=== PATIENT | female | born 1955 | race Caucasian/White ===

== ENCOUNTER 2025-06-19 11:56 | Emergency (ER) | payer MEDICARE, OTHER, SELFPAY ==
[2025-06-19 12:07] VITALS: BP 144/65; PULSE 70; TEMP 36.8; O2SAT 100; BMI 20.5
--- NOTE | 2025-06-19 12:13 | XR_ITS ---
The [address] [address] Patient Name: HILDA-------- Perlita VERGARA MRN: [id number] date: 1955 Sex: F Assigned Patient Location: ER Current Patient Location: ER Accession/Order Number: [id number] Exam Date: 06/19/2025 12:20 Report Date: 06/19/2025 12:42 At the request of: JOSE NIX MD Procedure: XR ribs RT min 3V w CXR1V PA CHEST WITH RIGHT RIBS: CLINICAL HISTORY: Patient fell today and has right rib pain. COMPARISON: None The chest film shows no infiltrate, effusion or pneumothorax. The cardiac, hilar and mediastinal silhouettes are within normal limits. No vascular congestion is seen. There is slight: Lumbar levoscoliotic curvature. There is a left breast prosthesis and hemostasis clips at the left axilla. AP and both oblique views of the right ribs show osteopenia. No definite acute displaced fractures or bony destruction are seen. XR/XR ribs RT min 3V w CXR1V IMPRESSION: NO ACUTE FINDINGS. Impression dictated by: Robyn Rivers M.D. 06/19/2025 12:42 PM Dictation Location: [place] [address] Electronically authenticated by: [id number] Y Date: 06/19/2025 12:42
--- NOTE | 2025-06-19 12:13 | ED.GENADUL1 ---
HPI HPI - General Adult General Chief complaint: Fall Stated complaint: RT SIDE PAIN - FALL Time Seen by Provider: 06/19/25 12:00 Source: patient Mode of arrival: walk-in Limitations: no limitations History of Present Illness HPI narrative: 70-year-old female presents to the emergency department for pain in the right side of her ribs. She had tripped over some pole equipment. She also sustained an abrasion to her lip but no other injuries. No LOC. No abdominal pain. This happened shortly before coming into the emergency department. Related Data Allergies Allergy/AdvReac Type Severity Reaction Status Date / Time No Known Drug Allergies Allergy Verified 06/19/25 12:07 Review of Systems ROS Narrative A ten point review of systems is negative except as noted above. PFSH PFSH Social History Little interest or pleasure in doing things: not at all Feeling down, depressed, or hopeless: not at all Exam Narrative Exam Narrative: Nurses note and vital signs reviewed and patient is not hypoxic. General: The patient appears in no acute distress. Skin: Warm, dry, no pallor noted. There is no rash noted. Head: Normocephalic, abrasion present at the left corner of her mouth. Eye: Normal conjunctiva, no drainage Ears, Nose, Mouth, and Throat: oral mucosa is moist. Nares patent. Cardiovascular: Regular Rate and Rhythm Respiratory: Patient is in no distress, no accessory muscle use, lungs are clear to auscultation, breath sounds are equal. She has some tenderness in the right posterior lateral rib region. No crepitus bruise or abrasion. Back: C-spine nontender GI: Soft and nontender Musculoskeletal: The patient has no evidence of calf tenderness, no pitting edema, symmetrical pulses noted bilaterally. Superficial abrasion present on her right forearm. Neurological: A&O, normal speech Psychiatric: Cooperative Constitutional Vital Signs, click to edit/add: Last Vital Signs Temp 98.2 F 06/19/25 12:07 Pulse 70 06/19/25 12:07 Resp 16 06/19/25 12:07 BP 144/65 H 06/19/25 12:07 Pulse Ox 100 06/19/25 12:07 O2 Del Method Room Air 06/19/25 12:07 Course Vital Signs Vital signs: Vital Signs Temperature 98.2 F 06/19/25 12:07 Pulse Rate 70 06/19/25 12:07 Respiratory Rate 16 06/19/25 12:07 Blood Pressure 144/65 H 06/19/25 12:07 Pulse Oximetry 100 06/19/25 12:07 Oxygen Delivery Method Room Air 06/19/25 12:07 Temperature 98.2 F 06/19/25 12:07 Pulse Rate 70 06/19/25 12:07 Respiratory Rate 16 06/19/25 12:07 Blood Pressure 144/65 H 06/19/25 12:07 Pulse Oximetry 100 06/19/25 12:07 Oxygen Delivery Method Room Air 06/19/25 12:07 Medical Decision Making MDM Narrative Medical decision making narrative: Rib x-rays are negative and she is released. Tetanus status is updated. Treatment diagnosis and follow-up were discussed with the patient. Differential Diagnosis Differential Diagnosis: Rib fracture, rib contusion, pneumothorax, need for tetanus immunization Imaging Data Rib x-rays: Radiologist's impression: ITS Impressions Ribs X-Ray 06/19/25 12:13 IMPRESSION: NO ACUTE FINDINGS. Impression dictated by: Robyn Rivers M.D. 06/19/2025 12:42 PM Dictation Location: [facility] Electronically authenticated by: [id number] Y Date: 06/19/2025 12:42 Discharge Plan Discharge Chief Complaint: Fall Clinical Impression: Chest wall contusion Patient Disposition: Home, Self-Care Time of Disposition Decision: 12:50 Condition: Good Mode of Transportation: Private Vehicle Print Language: Setswana Instructions: Rib Contusion (ED) Referrals: MIHIR CONTE [Primary Care Provider, Family Practice] - 1 week
[2025-06-19] MEDS: DIPHTH,PERTUSS(ACELL),TET VAC 0.5 ML SYRINGE IM (12:55)
== END 2025-06-19 12:59 | disposition home or self-care (01) ==
PROVIDERS: Emergency Provider Emergency Medicine; PCP Family Medicine
DX: S20.211A Contusion of right front wall of thorax, initial encounter (principal); S00.511A Abrasion of lip, initial encounter; S50.811A Abrasion of right forearm, initial encounter; W01.0XXA Fall on same level from slipping, tripping and stumbling without subsequent striking against object, initial encounter
CPT/HCPCS: 71101; 90471; 90715; 99284